=== PATIENT | male | born 1950 | race Caucasian/White ===

== ENCOUNTER 2016-04-07 10:32 | Outpatient (CLI) | payer MEDICARE, OTHER | END 2016-04-07 10:33 | disposition home or self-care (01) | DX: R05 Cough (principal); R06.00 Dyspnea, unspecified ==

== ENCOUNTER 2016-04-07 12:14 | Outpatient (CLI) | payer MEDICARE, OTHER | END 2016-04-07 12:15 | disposition home or self-care (01) | DX: R05 Cough (principal); R06.00 Dyspnea, unspecified; R09.02 Hypoxemia; R91.8 Other nonspecific abnormal finding of lung field ==

== ENCOUNTER 2016-04-07 14:49 | Emergency (ER) | payer MEDICARE, OTHER ==
[2016-04-07] MEDS ORDERED: SODIUM CHLORIDE 0.9% 1,000 ML IV ONE (16:01)
[2016-04-07] MEDS ORDERED: IOPAMIDOL-300 100 ML VIAL IVP ONE (17:19)
[2016-04-07] MEDS ORDERED: DEXAMETHASONE 10 MG/ML VIAL IVP STA (17:37)
[2016-04-07] MEDS ORDERED: ALBUTEROL NEB 2.5 MG/3 ML INH STA (17:37)
[2016-04-07] MEDS ORDERED: guaiFENesin/CODEINE 5 ML UDC PO STA (17:37)
[2016-04-07] MEDS ORDERED: guaiFENesin/CODEINE 5 ML UDC ONE (17:43)
[2016-04-07] MEDS ORDERED: DEXAMETHASONE 10 MG/ML VIAL ONE (17:43)
[2016-04-07] MEDS ORDERED: ALBUTEROL NEB 2.5 MG/3 ML INH ONE (17:45)
== END 2016-04-07 18:45 | disposition home or self-care (01) ==
DX: J18.9 Pneumonia, unspecified organism (principal); I10 Essential (primary) hypertension; Z87.442 Personal history of urinary calculi; Z87.891 Personal history of nicotine dependence
CPT/HCPCS: 36415; 71020; 71275; 80053; 85025; 85379; 94640; 94664; 96361; 96374; 99283; 99284; A9270; J7613; Q9967

== ENCOUNTER 2016-04-26 13:21 | Outpatient (CLI) | payer MEDICARE, OTHER | END 2016-04-26 13:22 | disposition home or self-care (01) | DX: J18.9 Pneumonia, unspecified organism (principal); R06.00 Dyspnea, unspecified ==

== ENCOUNTER 2019-02-28 13:23 | Outpatient (CLI) | payer MEDICARE, OTHER ==
--- NOTE | 2019-03-01 08:57 | XRAY Report ---
Reason: COUGH, R05 Procedure Date: 02/28/2019 Accession Number: [id number] / [id number] Procedure: XRS - Chest 2 View X-Ray CPT Code: 56832 Final Report FULL RESULT: EXAM: CHEST RADIOGRAPHY EXAM DATE: 02/28/2019 01:30 PM. CLINICAL HISTORY: COUGH, R05. COMPARISON: CHEST 2 VIEW PA/LAT 04/26/2016 1:40 PM. TECHNIQUE: 2 views. FINDINGS: Lungs/Pleura: Central bronchial wall thickening again noted. Mild hazy right greater than left basilar pulmonary opacities are seen. No focal left lung consolidation. No evidence of pleural effusion or pneumothorax. Mediastinum: Heart and mediastinal contours are unremarkable. Other: None. IMPRESSION: 1. Central bronchial wall thickening is noted which could reflect underlying reactive airways or bronchitis. 2. Mild hazy right greater than left basilar pulmonary opacities could reflect atelectasis or possibly mild pneumonia. RADIA
== END 2019-02-28 13:24 | disposition home or self-care (01) ==
LOC: DI.S 13:23
PROVIDERS: ATTEND Registered Nurse
DX: R05 Cough (principal); R91.8 Other nonspecific abnormal finding of lung field
CPT/HCPCS: 71046

== ENCOUNTER 2019-07-09 11:20 | Outpatient (CLI) | payer MEDICARE, OTHER ==
--- NOTE | 2019-07-09 12:40 | XRAY Report ---
Reason: PNEUMONIA Procedure Date: 07/09/2019 Accession Number: [id number] / [id number] Procedure: XR - Chest 2 View X-Ray CPT Code: 37852 Final Report FULL RESULT: PROCEDURE: Chest 2 View X-Ray INDICATIONS: PNEUMONIA TECHNIQUE: 2 views of the chest. COMPARISON: 02/28/2019. FINDINGS: Surgical changes and devices: None. Lungs and pleura: No pleural effusions or pneumothorax. Lungs are clear. Mediastinum: Mediastinal contours are normal. Heart size is normal. Bones and chest wall: No suspicious bony abnormalities. Soft tissues appear unremarkable. IMPRESSION: No acute cardiopulmonary pathology. Reviewed by: Angelo Morse MD on 07/09/2019 12:39 PM PDT Approved by: Angelo Morse MD on 07/09/2019 12:39 PM PDT Station ID: [id number]
== END 2019-07-09 11:21 | disposition home or self-care (01) ==
LOC: DI 11:20
PROVIDERS: ATTEND Registered Nurse
DX: Z09 Encounter for follow-up examination after completed treatment for conditions other than malignant neoplasm (principal); Z87.01 Personal history of pneumonia (recurrent)
CPT/HCPCS: 71046

== ENCOUNTER 2020-02-26 09:15 | Outpatient (CLI) | payer MEDICARE, OTHER ==
--- NOTE | 2020-02-26 10:22 | XRAY Report ---
PROCEDURE: Ribs w/PA Chest LT INDICATIONS: RIB PX TECHNIQUE: 4 views of the left ribs were acquired, along with a single view chest. COMPARISON: 07/09/2019 FINDINGS: Surgical changes and devices: None. Bones and chest wall: There are age-indeterminate but probably subacute left-sided rib fractures inv olving the lateral fifth rib and the anterior eighth rib. Age-indeterminate, possibly a healed fractu re deformities of the lateral sixth and seventh ribs. No suspicious bony lesions. Overlying soft ti ssues appear unremarkable. Lungs and pleura: No pleural effusions or pneumothorax. Lungs appear clear. Mediastinum: Mediastinal contours appear normal. Heart size is normal. IMPRESSION: 1. Chest without acute cardiopulmonary abnormalities. 2. Age-indeterminate but probably subacute left-sided rib fractures involving the lateral fifth rib a nd the anterior eighth rib. 3. Age-indeterminate but probably chronic lateral left sixth and seventh rib fractures. Reviewed by: Michael Weinberg MD on 02/26/2020 10:21 AM PST Approved by: Michael Weinberg MD on 02/26/2020 10:21 AM PST Station ID: [id number]
== END 2020-02-26 09:16 | disposition home or self-care (01) ==
LOC: DI.S 09:15
PROVIDERS: ATTEND Nurse Practitioner Family
DX: R07.81 Pleurodynia (principal)

== ENCOUNTER 2021-07-05 13:33 | Outpatient (CLI) | payer MEDICARE, OTHER ==
--- NOTE | 2021-07-05 16:23 | MRI Report ---
PROCEDURE: MRI of brain without contrast INDICATIONS: HEADACHE TECHNIQUE: Noncontrast axial T1 spin echo, axial T2 fast spin echo, sagittal and axial FLAIR, coronal T2 fast sp in echo, axial gradient echo, axial diffusion and ADC through the brain. COMPARISON: None. FINDINGS: Image quality: Excellent. CSF Spaces: Basal cisterns are patent. No extra-axial fluid collections. Ventricles are normal in size and shape. Brain: No intracranial masses or hemorrhage. Early/white matter interface is normal. Brainstem appe ars normal. Diffusion-weighted images demonstrate no acute infarct. Moderate atrophy and multifocal white matter chronic ischemic change present. Normal intravascular flow voids are present. Skull and face: Calvarium has normal marrow signal. Orbits appear normal. Sinuses: Sinuses and mastoids are clear other than 1.8 cm right maxillary sinus mucosal retention cy st. IMPRESSION: Atrophy and chronic ischemic change without acute infarct, hemorrhage or mass lesion Reviewed by: Avery Cherry MD on 07/05/2021 3:22 PM SASKIA Approved by: Avery Cherry MD on 07/05/2021 3:22 PM [id number] Station ID: [id number]
== END 2021-07-05 13:34 | disposition home or self-care (01) ==
LOC: DI 13:33
PROVIDERS: ATTEND Physician Assistant
DX: G44.52 New daily persistent headache (NDPH) (principal); G31.9 Degenerative disease of nervous system, unspecified; I67.82 Cerebral ischemia

== ENCOUNTER 2022-07-14 08:00 | Outpatient (CLI) | payer MEDICARE, OTHER ==
--- NOTE | 2022-07-14 20:07 | XRAY Report ---
PROCEDURE: Lumbar Spine 2 View INDICATIONS: LOW BACK PAIN TECHNIQUE: 2 views of the lumbar spine were acquired. COMPARISON: None. FINDINGS: Bones: 5 [id number] vertebrae are present. There is minimal retrolisthesis at L1-L2, L2-L3, an d L3-L4. There is moderate degenerative disc disease at L5-S1 with endplate sclerosis and osteophytos is. Moderate facet arthropathy also demonstrated in the lower lumbar spine at L5-S1. No vertebral bod y compression fractures. No suspicious bony lesions. Soft tissues: Overlying bowel gas pattern is normal. There are diffuse vascular calcifications. IMPRESSION: 1. Degenerative changes in the lumbar spine including moderate facet arthropathy and degenerative dis c disease at L5-S1. Reviewed by: Cruz Bernabe MD on 07/14/2022 8:06 PM PDT Approved by: rCuz Bernabe MD on 07/14/2022 8:06 PM PDT Station ID: [id number]
== END 2022-07-14 23:59 | disposition home or self-care (01) ==
LOC: DI.S 08:00
PROVIDERS: ATTEND Registered Nurse
DX: M47.816 Spondylosis without myelopathy or radiculopathy, lumbar region (principal); M51.37 Other intervertebral disc degeneration, lumbosacral region

== ENCOUNTER 2022-09-12 08:00 | Outpatient (CLI) | payer MEDICARE, OTHER ==
--- NOTE | 2022-09-12 14:32 | XRAY Report ---
PROCEDURE: Chest 2 View X-Ray INDICATIONS: SHORTNESS OF BREATH TECHNIQUE: 2 views of the chest were acquired. COMPARISON: 07/09/2019 FINDINGS: Surgical changes and devices: None. Lungs and pleura: No dense consolidation or pleural effusion. Possible peribronchial fullness and cu ffing. Mediastinum: Normal heart size. Bones and chest wall: No suspicious bony lesions. Overlying soft tissues appear unremarkable. IMPRESSION: No dense consolidation or pleural effusion. Possible mild peribronchial cuffing/fullness could repres ent bronchitis or atypical infection. Reviewed by: Jose Angel Huffman MD on 09/12/2022 2:31 PM PDT Approved by: Jose Angel Huffman MD on 09/12/2022 2:31 PM PDT Station ID: [id number]
== END 2022-09-12 23:59 | disposition home or self-care (01) ==
LOC: DI.S 08:00
PROVIDERS: ATTEND Physician Assistant
DX: R06.02 Shortness of breath (principal)

== ENCOUNTER 2022-11-07 14:33 | Outpatient (CLI) | payer MEDICARE, OTHER ==
--- NOTE | 2022-11-07 16:52 | XRAY Report ---
PROCEDURE: Chest 2 View X-Ray INDICATIONS: PNEUMONIA TECHNIQUE: 2 views of the chest were acquired. COMPARISON: Chest x-ray, 09/12/2022. FINDINGS: Surgical changes and devices: None. Lungs and pleura: Mild infiltrate in the right lower lobe. No pleural effusions or pneumothorax. Mariaelena ngs are clear. Mediastinum: Mediastinal contours appear normal. Heart size is normal. Bones and chest wall: No suspicious bony lesions. Overlying soft tissues appear unremarkable. IMPRESSION: Mild infiltrate in the right lower lobe suspicious for pneumonia. Reviewed by: Albert Carrion MD on 11/07/2022 4:51 PM PDT Approved by: Albert Carrion MD on 11/07/2022 4:51 PM PDT Station ID: [id number]
== END 2022-11-07 14:34 | disposition home or self-care (01) ==
LOC: DI.S 14:33
PROVIDERS: ATTEND Registered Nurse
DX: J18.9 Pneumonia, unspecified organism (principal)

== ENCOUNTER 2023-01-02 09:19 | Outpatient (CLI) | payer MEDICARE, OTHER ==
--- NOTE | 2023-01-02 13:10 | XRAY Report ---
PROCEDURE: Chest 2 View X-Ray INDICATIONS: PNA TECHNIQUE: 2 views of the chest were acquired. COMPARISON: 11/07/2022., 09/12/2022 FINDINGS: Surgical changes and devices: None. Lungs and pleura: The subtle density present in the right lung base appears to be chronically presen t, and may represent scarring. No findings suspicious for acute pneumonia. Mediastinum: Mediastinal contours appear normal. Heart size is normal. Bones and chest wall: No suspicious bony lesions. Overlying soft tissues appear unremarkable. IMPRESSION: No acute process noted. Reviewed by: Boni Allred MD on 01/02/2023 1:09 PM PST Approved by: Boni Allred MD on 01/02/2023 1:09 PM PST Station ID: [id number]
== END 2023-01-02 09:20 | disposition home or self-care (01) ==
LOC: DI.S 09:19
PROVIDERS: ATTEND Registered Nurse
DX: J18.9 Pneumonia, unspecified organism (principal)

== ENCOUNTER 2023-03-30 08:00 | Outpatient (CLI) | payer MEDICARE, OTHER ==
--- NOTE | 2023-03-30 12:53 | XRAY Report ---
PROCEDURE: Chest 2V INDICATIONS: HYPOXIA/ACUTE COUGH TECHNIQUE: 2 views of the chest were acquired. COMPARISON: Chest x-ray 12/25/2022. FINDINGS: Surgical changes and devices: None. Lungs and pleura: No pleural effusions or pneumothorax. Lungs are clear. Bilateral breast shadows noted. Mediastinum: Mediastinal contours appear normal. Heart size is normal. Bones and chest wall: No suspicious bony lesions. IMPRESSION: No acute cardiopulmonary process. Reviewed by: Chalino Castañeda MD on 03/30/2023 12:51 PM PST Approved by: Chalino Castañeda MD on 03/30/2023 12:51 PM PST Station ID: [id number]
== END 2023-03-30 23:59 | disposition home or self-care (01) ==
LOC: DI.S 08:00
PROVIDERS: ATTEND Registered Nurse
DX: R05.1 Acute cough (principal); R09.02 Hypoxemia

== ENCOUNTER → 2023-03-30 | Outpatient (CLI) | payer MEDICARE, OTHER | LOC: LAB.S 08:00 | PROVIDERS: ATTEND Registered Nurse | DX: R05.1 Acute cough (principal); R09.02 Hypoxemia ==

== ENCOUNTER 2023-05-02 07:00 | Outpatient (CLI) | payer MEDICARE, OTHER ==
--- NOTE | 2023-05-02 11:29 | XRAY Report ---
PROCEDURE: Chest 2V INDICATIONS: ACUTE COUGH TECHNIQUE: 2 views of the chest were acquired. COMPARISON: Chest x-ray 03/30/2023 FINDINGS: Surgical changes and devices: None. Lungs and pleura: No pleural effusions or pneumothorax. Lungs are clear. Mediastinum: Mediastinal contours appear normal. Heart size is prominent. Bones and chest wall: No suspicious bony lesions. Overlying soft tissues appear unremarkable. IMPRESSION: No acute cardiopulmonary process. Reviewed by: Carlee Hawley MD on 05/02/2023 11:27 AM PDT Approved by: Carlee Hawley MD on 05/02/2023 11:27 AM PDT Station ID: [id number]
== END 2023-05-02 23:59 | disposition home or self-care (01) ==
LOC: DI.S 07:00
PROVIDERS: ATTEND Registered Nurse
DX: R05.1 Acute cough (principal); R09.02 Hypoxemia